=== PATIENT | female | born 1995 | race Caucasian/White ===

== ENCOUNTER → 2021-01-12 | Outpatient (CLI) | payer OTHER ==
--- NOTE | 2021-01-12 10:51 | REP ---
INDICATION: MALFORMATION OF UPPER LIMB COMPARISON: None TECHNIQUE: Limited directed ultrasound examination of the left upper extremity using linear high-frequency transducer. FINDINGS: Directed ultrasound examination overlying the area of palpable mass and area previous surgical intervention demonstrates small nonspecific superficial arterial vessels without obvious arteriovenous malformation. No focal fluid collection or mass lesion identified. IMPRESSION: 1. Limited examination without obvious abnormality. <Electronically signed by Elias Whitmore > 01/12/21 1043
== END ==
LOC: M RAD 09:39
PROVIDERS: ATTEND Preventive Medicine Undersea and Hyperbaric Medicine
DX: Q27.31 Arteriovenous malformation of vessel of upper limb (principal)